=== PATIENT | female | born 1995 | race Caucasian/White ===

== ENCOUNTER 2018-06-03 09:42 | Outpatient (CLI) | payer OTHER ==
--- NOTE | 2018-06-03 12:23 | DEXA Report ---
Procedure Date: 06/03/2018 Accession Number: [id number] / [id number] Procedure: DEX - Dexa Spine and/or Hip CPT Code: FULL RESULT: EXAM: Dexa Spine and/or Hip DATE: 06/03/2018 10:30 AM CLINICAL HISTORY: OSTEOPOROSIS, DRUG-INDUCED TECHNIQUE: Dual energy x-ray absorptiometry (DXA) was performed on a SHADO System. Regions measured are the AP Spine, femoral neck, and if needed forearm. COMPARISON: None. In accordance with the International Society for Clinical Densitometry (ISCD) guidelines, data from previous exams may be reanalyzed using current recommendations and techniques. This is done to allow a more accurate basis for comparison with the current study. FINDINGS: The data for the lumbar spine is as follows: BMD (g/cm/cm) T-SCORE Z-SCORE REGION L1 0.779 -2.9 -2.3 L2 0.933 -2.2 -1.6 L3 0.936 -2.2 -1.5 L4 0.895 -2.5 -1.9 TOTAL 0.889 -2.4 -1.8 NOTE: All evaluable vertebrae are used for classification The data for the hip is as follows: BMD (g/cm/cm) T-SCORE Z-SCORE REGION Neck 0.835 -1.5 -1.1 TOTAL 0.748 -2.1 -1.6 NOTE: The femoral neck or total proximal femur, whichever is lowest, is used for classification. IMPRESSION: THE WHO CLASSIFICATION BASED ON THE INTERNATIONAL REFERENCE STANDARD IS OSTEOPENIA. THE FRACTURE RISK IS INCREASED. RECOMMENDATION: Patients with diagnosis of osteoporosis or osteopenia should have regular bone mineral density assessment. For those eligible for Medicare, routine testing is allowed once every 2 years. Testing frequency can be increased for patients who have rapidly progressing disease or for those who are receiving medical therapy to restore bone mass. COMMENT: World Health Organization (WHO) definitions for osteoporosis and osteopenia: NORMAL BMD: T-score at -1.0 or higher, fracture risk is low OSTEOPENIA BMD: T-score between -1.0 and -2.5, fracture risk is increased. OSTEOPOROSIS BMD: T-score at -2.5 or lower, fracture risk is high. National Osteoporosis Foundation recommends: 1. Obtain adequate dietary calcium (at least 1200 mg per day) and vitamin D (400-800 international units per day). 2. Participate, as appropriate, in regular weightbearing and muscle-strengthening exercise. 3. Avoid tobacco use and reduce alcohol and caffeine intake. 4. For more detailed information see the website at www.NOF.org.
== END 2018-06-03 09:43 | disposition home or self-care (01) ==
LOC: DI 09:42
PROVIDERS: ATTEND Physician Assistant
DX: M85.89 Other specified disorders of bone density and structure, multiple sites (principal)
CPT/HCPCS: 77080

== ENCOUNTER 2020-02-26 07:52 | Outpatient (CLI) | payer OTHER ==
--- NOTE | 2020-02-26 08:59 | Ultrasound Report ---
Reason: POSITIVE TEST Procedure Date: 02/26/2020 Accession Number: [id number] / [id number] Procedure: US - OB First Trimester CPT Code: Final Report FULL RESULT: EXAM: FIRST TRIMESTER OBSTETRIC ULTRASOUND (Less than 11 weeks) EXAM DATE: 02/26/2020 08:44 AM. CLINICAL HISTORY: POSITIVE TEST. LMP: 12/19/2019. COMPARISONS: None. TECHNIQUE: Transabdominal and transvaginal ultrasound examination with static image documentation. CLINICAL DATES: EGA 9 weeks 6 days with ARIADNA 09/24/2020 based on LMP. ASSESSMENT: Gestational Sac: Single intrauterine. Normal shape. Mean gestational sac diameter: 14.4 mm = 6 weeks 2 days (ARIADNA 10/19/2020). Embryo: CRL (crown-rump length) 2.2 mm = 5 weeks 5 days. ARIADNA 10/23/2020). Cardiac activity: Not seen. Yolk sac: 3.2 mm. Amniotic fluid: Not accurately assessed at this gestational age. Early placenta: Not visible at this gestational age. Other: No perigestational fluid collection demonstrated. MATERNAL STRUCTURES: Uterus: Anteverted. Unremarkable. Cervix: Closed. Right Ovary/Adnexa: The ovary measures 2.6 x 2.3 x 1.9 cm, volume 5.9 cc. Probable 2.2 cm corpus luteum. Left Ovary/Adnexa: The ovary measures 2.4 x 1.6 x 1.4 cm, volume 2.8 cc. Unremarkable. Free Fluid: None. Other: None. IMPRESSION: 1. Intrauterine measuring 5 weeks 5 days (ARIADNA 10/23/2020) by CRL, discordant with clinical dates (EGA 9 weeks 6 days, ARIADNA 09/24/2020 by LMP). 2. No embryonic heart motion is seen at this time which may be due to early gestational age however ultimately of uncertain viability. Recommend follow-up with serial serum beta-hCG and follow-up ultrasound in 7-10 days. 3. No perigestational fluid collection. Cervix is closed. RADIA
== END 2020-02-26 07:53 | disposition home or self-care (01) ==
LOC: DI 07:52
PROVIDERS: ATTEND Advanced Practice Midwife
DX: Z32.01 Encounter for pregnancy test, result positive (principal)
CPT/HCPCS: 76801; 76817

== ENCOUNTER 2020-03-01 08:00 | Outpatient (CLI) | payer OTHER | END 2020-03-01 23:59 | disposition home or self-care (01) | LOC: LAB.WCP 08:00 | PROVIDERS: ATTEND Advanced Practice Midwife | DX: Z34.90 Encounter for supervision of normal pregnancy, unspecified, unspecified trimester (principal) | CPT/HCPCS: 36415; 84702 ==

== ENCOUNTER 2020-03-04 13:50 | Outpatient (CLI) | payer OTHER ==
[2020-03-04 14:42] LABS: MUDS CUTOFF CONCENTRATIONS CUTOFF CONC BELOW:
[2020-03-04 16:32] LABS: BILIRUBIN,URINE NEGATIVE (NEGATIVE); GLUCOSE, URINE (UA) NEGATIVE (NEGATIVE); KETONES,URINE (UA) NEGATIVE (NEGATIVE); LEUKOCYTE ESTERASE, URINE NEGATIVE (NEGATIVE); NITRITE,URINE NEGATIVE (NEGATIVE); OCCULT BLOOD,URINE NEGATIVE (NEGATIVE); PROTEIN,URINE NEGATIVE (NEGATIVE); UROBILINOGEN,URINE 0.2 (NORMAL) E.U./dL (NORMAL)
[2020-03-04 16:32] LABS: BASOPHILS % (AUTO) 0.4 %; EOSINOPHILS # (AUTO) 0.1 10^3/uL (0.0-0.7); HGB - HEMOGLOBIN 12.4 g/dL (12.0-16.0); LYMPHOCYTES # (AUTO) 1.8 10^3/uL (1.5-3.5); MEAN CORPUSCULAR HGB CONC 33.2 g/dL (32.0-36.0); MEAN CORPUSCULAR VOLUME 87.4 fL (81.0-99.0); MEAN PLATELET VOLUME 10.5 fL (7.9-10.8); MONOCYTES # (AUTO) 0.6 10^3/uL (0.0-1.0); MONOCYTES % (AUTO) 5.8 %; NEUTROPHILS # (AUTO) 8.1 10^3/uL (1.5-6.6); NEUTROPHILS % (AUTO) 75.3 %; PLT - PLATELET COUNT 265 10^3/uL (130-450); RED BLOOD COUNT 4.28 10^6/uL (4.20-5.40); WHITE BLOOD COUNT 10.7 x10^3/uL (4.8-10.8)
[2020-03-04 16:35] LABS: CLARITY,URINE CLEAR (CLEAR)
[2020-03-04 16:48] LABS: COCAINE SCREEN URINE NEGATIVE (NEGATIVE)
[2020-03-04 16:49] LABS: AMPHETAMINE SCREEN,URINE NEGATIVE (NEGATIVE); BENZODIAZEPINES SCREEN, URINE NEGATIVE (NEGATIVE); METHADONE SCREEN, URINE NEGATIVE (NEGATIVE); METHAMPHETAMINES SCREEN, URINE NEGATIVE (NEGATIVE); OPIATE SCREEN, URINE NEGATIVE (NEGATIVE); OXYCODONE SCREEN, URINE NEGATIVE (NEGATIVE); PROPOXYPHENE SCREEN, URINE NEGATIVE (NEGATIVE); TRICYCLIC ANTIDEPRESSANT,URINE NEGATIVE (NEGATIVE)
[2020-03-04 16:54] LABS: BACTERIA,URINE None Seen /HPF (None Seen); RBC,URINE 0-5 /HPF (0-5); SQUAMOUS EPITHELIAL CELL,UR RARE Squamous (<= Few)
[2020-03-05 11:09] LABS: HIV AG/AB 4TH GEN NON-REACTIVE (NON-REACTIVE)
[2020-03-05 13:35] LABS: HEPATITIS B SURFACE ANTIGEN NON-REACTIVE (NON-REACTIVE); HEPATITIS C ANTIBODY NON-REACTIVE (NON-REACTIVE)
== END 2020-03-04 23:59 | disposition home or self-care (01) ==
LOC: LAB.WCP 13:50
PROVIDERS: ATTEND Advanced Practice Midwife
DX: Z34.80 Encounter for supervision of other normal pregnancy, unspecified trimester (principal)
CPT/HCPCS: 36415; 80306; 81001; 81599; 84702; 85025; 86762; 86803; 86850; 86900; 86901; 87086; 87340; 87389

== ENCOUNTER 2020-03-04 16:31 | Outpatient (CLI) | payer OTHER ==
--- NOTE | 2020-03-04 18:37 | Ultrasound Report ---
Reason: F/U 1ST TRI US, SUPERVISION OF NORMAL PREG. Procedure Date: 03/04/2020 Accession Number: [id number] / [id number] Procedure: US - OB First Trimester CPT Code: Final Report FULL RESULT: EXAM: FIRST TRIMESTER OBSTETRIC ULTRASOUND (Less than 11 weeks) EXAM DATE: 03/04/2020 05:46 PM. CLINICAL HISTORY: F/U 1ST TRI US, SUPERVISION OF NORMAL PREG. LMP: 12/19/2019. COMPARISONS: OB FIRST TRIMESTER 02/26/2020 7:59 AM. TECHNIQUE: Transabdominal and transvaginal ultrasound examination with static image documentation. CLINICAL DATES: EGA 6 weeks 5 days with ARIADNA 10/23/2020 based on prior ultrasound . ASSESSMENT: Gestational Sac: Single intrauterine. Mean gestational sac diameter: 21 mm = 7 weeks 0 days. Embryo: CRL (crown-rump length) 8 mm = 6 weeks 5 days. Cardiac activity: 113 beats per minute. Yolk sac: 4 mm. Amniotic fluid: Not accurately assessed at this gestational age. Early placenta: Not visible at this gestational age. Other: 0.7 x 0.5 cm perigestational fluid collection demonstrated. MATERNAL STRUCTURES: Uterus: Anteverted. Unremarkable. Cervix: Closed. Right Ovary/Adnexa: The ovary measures 2.6 x 2.8 x 2.3 cm, volume 8.8 cc. 2.4 x 2.2 x 2.4 cm corpus luteal cyst. Left Ovary/Adnexa: The ovary measures 2.6 x 1.1 x 2.8 cm, volume 4 cc. Unremarkable. Free Fluid: None. Other: None. IMPRESSION: 1. Single viable intrauterine at EGA 6 weeks 5 days with ARIADNA 10/23/2020 based on crown-rump length, which is concordant with previous ultrasound. Small perigestational fluid collection RADIA
== END 2020-03-04 16:32 | disposition home or self-care (01) ==
LOC: DI 16:31
PROVIDERS: ATTEND Advanced Practice Midwife
DX: Z34.81 Encounter for supervision of other normal pregnancy, first trimester (principal)
CPT/HCPCS: 36415; 76801; 76817; 80306; 81001; 81599; 84702; 85025; 86762; 86803; 86850; 86900; 86901; 87340; 87389

== ENCOUNTER 2020-05-08 08:58 | Outpatient (CLI) | payer OTHER | END 2020-05-08 23:59 | disposition home or self-care (01) | LOC: LAB.WCP 08:58 | PROVIDERS: ATTEND Advanced Practice Midwife | DX: Z34.80 Encounter for supervision of other normal pregnancy, unspecified trimester (principal); Z36.0 Encounter for antenatal screening for chromosomal anomalies | CPT/HCPCS: 36415; 81511; 81599 ==

== ENCOUNTER 2020-05-29 07:00 | Outpatient (CLI) | payer OTHER ==
[2020-05-29 22:24] LABS: TRICHOMONAS VAGINALIS DNA NEGATIVE (NEGATIVE)
== END 2020-05-29 23:59 | disposition home or self-care (01) ==
LOC: LAB.R 07:00
PROVIDERS: ATTEND Advanced Practice Midwife
DX: Z34.80 Encounter for supervision of other normal pregnancy, unspecified trimester (principal)
CPT/HCPCS: 87491; 87591; 87661

== ENCOUNTER 2020-06-05 15:54 | Outpatient (CLI) | payer OTHER ==
--- NOTE | 2020-06-06 16:21 | Ultrasound Report ---
PROCEDURE: OB Detailed Eval INDICATIONS: SUPERVISION, OTHER NORMAL PREG OUTSIDE/PRIOR DATING DATA: Last menstrual period (LMP): 12/19/2019. LMP-based estimated date of delivery (ARIADNA): 09/24/2020. First dating scan (date and location): 02/26/2020. Estimated date of delivery (ARIADNA) from first dating scan: 10/23/2020. TECHNIQUE: Real-time scanning was performed of the fetus, with image documentation and biometric measurements. COMPARISON: OB ultrasound 03/04/2020 FINDINGS: General: A single living intrauterine gestation is present. Presentation: Vertex Placenta: Placental position is posterior, without previa. Amniotic fluid index: 14.5 cm, 54th percentile for gestational age. Largest pocket 4.6 cm heart rate: 147 beats per minute. Maternal cervical canal: 3.3 cm long; normal length is 2.5 cm or more. biometrics: Biparietal diameter: 4.7 cm 20 weeks 1 day Head circumference: 17.7 cm 20 weeks 1 day Abdominal circumference: 14.9 cm 20 weeks 1 day Femur length: 3.0 cm 19 weeks 3 days Estimated gestational age from initial scan: 20 weeks 0 days Composite gestational age from present scan: 19 weeks 5 days Estimated weight and percentile: 317g, 37th percentile Measurement variability in biometric dating: +/- 10 days from 12-20 weeks gestation, +/- 2 weeks from 20-30 weeks gestation, +/- 3 weeks at 30 weeks gestation or later. Anatomic survey: Neuro: Ventricles are normal at less than 10 mm. Cisterna magna is normal at 3-11 mm. Cerebellum i s normal in size and morphology. Nuchal skin fold: Normal at less than 6 mm between 14 and 20 weeks gestational age. Face: Nose and lips, facial profile are normal. Spine: No evidence for spina bifida. Heart: 4-chambered heart is not well seen. Diaphragm: Diaphragm is intact. Stomach: Left-sided stomach is present. Kidneys: No hydronephrosis. Normal is less than 5 mm in 2nd trimester, less than 7 mm in 3rd trimester. Cord: 3 vessel cord has orthotopic insertion. Bladder: Normal in size. Extremities: All 4 extremities are visualized. IMPRESSION: 1. Single live anterior with ultrasound gestational age today of 19 weeks 5 days correspond ing to ARIADNA of 10/23/2020, unchanged. 2. 4 chamber heart is suboptimally evaluated. Follow-up imaging is recommended. Reviewed by: Genesis Bruno MD on 06/06/2020 4:20 PM PDT Approved by: Genesis Bruno MD on 06/06/2020 4:20 PM PDT Station ID: [id number]
== END 2020-06-05 15:55 | disposition home or self-care (01) ==
LOC: DI 15:54
PROVIDERS: ATTEND Advanced Practice Midwife
DX: Z34.80 Encounter for supervision of other normal pregnancy, unspecified trimester (principal)
CPT/HCPCS: 76811

== ENCOUNTER 2020-07-18 13:46 | Outpatient (CLI) | payer OTHER ==
--- NOTE | 2020-07-18 16:22 | Ultrasound Report ---
PROCEDURE: OB F/U or Repeat INDICATIONS: SUPERVISION NORMAL OUTSIDE/PRIOR DATING DATA: Last menstrual period (LMP): 12/19/2019. LMP-based estimated date of delivery (ARIADNA): 09/24/2020. First dating scan (date and location): 02/26/2020. Estimated date of delivery (ARIADNA) from first dating scan: 10/23/2020. TECHNIQUE: Real-time scanning was performed of the fetus, with image documentation and biometric measurements. Endovaginal scanning: Not performed COMPARISON: 06/05/2020 FINDINGS: General: A single living intrauterine gestation is present. Presentation: Transverse oblique Placenta: Placental position is posterior, without previa. Amniotic fluid index: 14.0 cm, normal for gestational age. heart rate: 157 beats per minute. Maternal cervical canal: 4.7 cm long; normal length is 2.5 cm or more. Other: Adequate view of the normal 4 chambered heart is obtained. IMPRESSION: 1. Single living intrauterine . 2. Normal-appearing 4 chambered heart is documented. Reviewed by: Jessica Alonso MD on 07/18/2020 4:21 PM PDT Approved by: Jessica Alonso MD on 07/18/2020 4:21 PM PDT Station ID: [id number]
== END 2020-07-18 13:47 | disposition home or self-care (01) ==
LOC: DI 13:46
PROVIDERS: ATTEND Advanced Practice Midwife
DX: Z34.80 Encounter for supervision of other normal pregnancy, unspecified trimester (principal)
CPT/HCPCS: 76816

== ENCOUNTER 2020-07-22 07:48 | Outpatient (CLI) | payer OTHER ==
[2020-07-22 11:43] LABS: HGB - HEMOGLOBIN 11.4 g/dL (12.0-16.0); MEAN CORPUSCULAR HEMOGLOBIN 29.2 pg (27.0-31.0); MEAN CORPUSCULAR HGB CONC 32.2 g/dL (32.0-36.0); MEAN CORPUSCULAR VOLUME 90.5 fL (81.0-99.0); MEAN PLATELET VOLUME 10.6 fL (7.9-10.8); RED BLOOD COUNT 3.91 10^6/uL (4.20-5.40); RED CELL DISTRIBUTION WIDTH 13.1 % (12.0-15.0); WHITE BLOOD COUNT 9.5 x10^3/uL (4.8-10.8)
== END 2020-07-22 23:59 ==
LOC: LAB.WCP 07:48
PROVIDERS: ATTEND Advanced Practice Midwife
DX: Z34.80 Encounter for supervision of other normal pregnancy, unspecified trimester (principal)
CPT/HCPCS: 36415; 82950; 85027

== ENCOUNTER 2020-09-25 08:00 | Outpatient (CLI) | payer OTHER | END 2020-09-25 08:01 | disposition home or self-care (01) | LOC: LAB.R 08:00 | PROVIDERS: ATTEND Nurse Practitioner Obstetrics & Gynecology | DX: Z36.85 Encounter for antenatal screening for Streptococcus B (principal) | CPT/HCPCS: 87797 ==

== ENCOUNTER 2020-10-15 08:17 | Outpatient (CLI) | payer OTHER ==
--- NOTE | 2020-10-15 15:52 | Ultrasound Report ---
PROCEDURE: OB Follow Up or Repeat INDICATIONS: UTERINE SIZE-DATE DISCREPANCY OUTSIDE/PRIOR DATING DATA: Last menstrual period (LMP): 12/19/2019. LMP-based estimated date of delivery (ARIADNA): 09/24/2020. First dating scan (date and location): 02/26/2020. Estimated date of delivery (ARIADNA) from first dating scan: 12/23/2019. TECHNIQUE: Real-time scanning was performed of the fetus, with image documentation and biometric measurements. COMPARISON: OB ultrasound 07/18/2020, , 03/04/2020 FINDINGS: General: A single living intrauterine gestation is present. Presentation: Vertex Placenta: Placental position is posterior, without previa. Amniotic fluid index: 13.7 cm, within normal limits for gestational age. Largest pocket 5.7 cm heart rate: 159 beats per minute. Maternal cervical canal: 3.2 cm long; normal length is 2.5 cm or more. biometrics: Biparietal diameter: 9.0 cm 36 weeks 3 days Head circumference: 33.7 cm 38 weeks 4 days Abdominal circumference: 32.3 cm 36 weeks 1 day Femur length: 7.2 cm 36 weeks 6 days Estimated gestational age from initial scan: 38 weeks 6 days Composite gestational age from present scan: 37 weeks 0 days Estimated weight and percentile: 2994 g Measurement variability in biometric dating: +/- 10 days from 12-20 weeks gestation, +/- 2 weeks from 20-30 weeks gestation, +/- 3 weeks at 30 weeks gestation or more. Other: Not applicable. IMPRESSION: 1. Single live intrauterine with ultrasound gestational age today of 37 weeks 0 days compar ed to 38 weeks 6 days from initial ultrasound. Ultrasound ARIADNA is unchanged at 12/23/2019. Reviewed by: Genesis Bruno MD on 10/15/2020 3:51 PM PST Approved by: Genesis Bruno MD on 10/15/2020 3:51 PM PST Station ID: [id number]
== END 2020-10-15 08:18 | disposition home or self-care (01) ==
LOC: DI.N 08:17
PROVIDERS: ATTEND Nurse Practitioner Obstetrics & Gynecology
DX: O26.843 Uterine size-date discrepancy, third trimester (principal)
CPT/HCPCS: 76816

== ENCOUNTER 2020-10-28 14:00 | Outpatient (CLI) | payer OTHER | END 2020-10-28 14:01 | disposition home or self-care (01) | LOC: LAB 14:00 | PROVIDERS: ATTEND Nurse Practitioner Obstetrics & Gynecology | DX: Z34.80 Encounter for supervision of other normal pregnancy, unspecified trimester (principal); Z20.828 Contact with and (suspected) exposure to other viral communicable diseases ==

== ENCOUNTER 2020-10-30 09:11 | Outpatient (CLI) | payer OTHER ==
[2020-10-30 09:26] VITALS: BP 127/88
--- NOTE | 2020-10-30 10:04 | PROCEDURE REPORT ---
- HPI Diagnosis/Indication for NST: Post-dates gestation Vital Signs Temperature 36.9 C 10/30/20 09:24 Heart Rate 104 H 10/30/20 09:24 Respiratory Rate 18 10/30/20 09:24 Blood Pressure 127/88 H 10/30/20 09:24 O2 Saturation 100 10/30/20 09:24 Temperature 36.9 C 10/30/20 09:24 Heart Rate 104 H 10/30/20 09:24 Respiratory Rate 18 10/30/20 09:24 Blood Pressure 127/88 H 10/30/20 09:24 O2 Saturation 100 10/30/20 09:24 - NST Procedure NST reactive. FHR baseline 140s, moderate variability, + accels, no decels - Results and Plan Plan: Malini is a 25yo @ 41.0wks gestation by 6.5 week ultrasound who presents for scheduled NST secondary to postdates . She was seen for routine visit at [facility] immediately prior to her arrival today. She denies vaginal bleeding, leakage of fluid or contractions. She reports +FM. She denies questions or concerns today. NST performed 10/30/2020. NST read 10/30/2020 NST reactive. FHR baseline 140s, moderate variability, + accels, no decels. Plan: Pt released home with precautions. Schedule to return 11/01/2020 at 0730 for scheduled IOL secondary to postdates . Advised pt to present at that time or sooner PRN. Pt verbalized understanding and agrees to above plan. She denies further questions or concerns at this time. FINAL DIAGNOSIS: Post-dates (41.0wks gestation)
== END 2020-10-30 10:00 | disposition home or self-care (01) ==
LOC: WFO 09:11 → FBP 09:14 → WFO 10:00
PROVIDERS: ATTEND Nurse Practitioner Obstetrics & Gynecology
DX: O48.0 Post-term pregnancy (principal); Z3A.41 41 weeks gestation of pregnancy
CPT/HCPCS: 59025

== ENCOUNTER 2020-10-31 00:56 | Inpatient (IN) | payer OTHER ==
[2020-10-31] MEDS ORDERED: SODIUM CHLORIDE FLUSH 0.9% 10 ML SYRINGE IVP PRN (01:19)
[2020-10-31 01:39] LABS: RUPTURE OF MEMBRANES PLUS POSITIVE (NEGATIVE)
[2020-10-31] MEDS ORDERED: fentaNYL 100 MCG/2 ML VIAL IVP PRN (01:47)
[2020-10-31] MEDS ORDERED: OXYTOCIN/SODIUM CHLORIDE 500 ML IV PRN ×2 (01:47)
[2020-10-31] MEDS ORDERED: METHYLERGONOVINE 0.2 MG/ML VIAL IM PRN (01:47)
[2020-10-31] MEDS ORDERED: LIDOCAINE-MPF 1% 30 ML VIAL ID PRN (01:47)
[2020-10-31] MEDS ORDERED: OXYTOCIN 10 UNIT/ML VIAL IM PRN (01:47)
[2020-10-31] MEDS ORDERED: CARBOPROST TROMETHAMINE 250 MCG/ML AMP IM PRN (01:47)
[2020-10-31] MEDS ORDERED: miSOPROStoL 200 MCG TABLET BC PRN (01:47)
[2020-10-31] MEDS ORDERED: TRANEXAMIC ACID 1,000 MG in SODIUM CHLORIDE 0.9% 100ML 100 ML IV PRN (01:47)
[2020-10-31 02:15] LABS: BASOPHILS % (AUTO) 0.2 %; EOSINOPHILS # (AUTO) 0.3 10^3/uL (0.0-0.7); EOSINOPHILS % (AUTO) 2.4 %; HGB - HEMOGLOBIN 12.5 g/dL (12.0-16.0); LYMPHOCYTES # (AUTO) 2.8 10^3/uL (1.5-3.5); LYMPHOCYTES % (AUTO) 22.9 %; MEAN CORPUSCULAR HEMOGLOBIN 29.8 pg (27.0-31.0); MEAN CORPUSCULAR HGB CONC 33.3 g/dL (32.0-36.0); MEAN CORPUSCULAR VOLUME 89.3 fL (81.0-99.0); MEAN PLATELET VOLUME 11.2 fL (7.9-10.8); MONOCYTES # (AUTO) 0.7 10^3/uL (0.0-1.0); NEUTROPHILS # (AUTO) 8.2 10^3/uL (1.5-6.6); PLT - PLATELET COUNT 239 10^3/uL (130-450); RED CELL DISTRIBUTION WIDTH 12.8 % (12.0-15.0); WHITE BLOOD COUNT 12.1 x10^3/uL (4.8-10.8)
--- NOTE | 2020-10-31 04:33 | HISTORY & PHYSICAL EXAMINATION ---
Admit History - Visit Reason Visit Reason: Membranes rupture - : 1 Parity: 0 Premature: 0 Ectopic: 0 : 0 Care: positive: [facility] Risk/History: positive: None Complications This : positive: None Smoking Status: Never smoker - Mother's Labs Mother's Blood Type: positive: B Mother's RH: positive: Positive GBS: positive: Group B Step Negative Rubella Status: positive: Immune Meds/Allgy - Allergies Allergies/Adverse Reactions: Allergies Allergy/AdvReac Type Severity Reaction Status Date / Time amoxicillin Allergy Hives Verified 10/31/20 01:10 Review of Systems - Constitutional Constitutional: denies: Fatigue, Fever, Chills - Eyes Eyes: denies: Blurred vision, Spots in vision, Dipolpia - Cardiovascular Cariovascular: denies: Irregular heart rate, Chest pain, Edema - Respiratory Respiratory: denies: Cough, SOB at rest - Gastrointestinal Gastrointestinal: denies: Abdominal pain, Constipation, Diarrhea, Change in bowel habits - Integumentary Integumentary: denies: Rash, Pruritis - Neurological Neurological: denies: Headache, Dizziness Physical - Abdominal Exam Vital Signs: Temp Pulse Resp BP Pulse Ox 36.8 C 103 H 16 118/81 H 99 10/31/20 01:53 10/31/20 01:08 10/31/20 01:08 10/31/20 02:17 10/31/20 01:08 Contraction Frequency (min/apart): 2-4 Contraction Intensity: positive: Moderate Uterine Resting Tone: positive: Soft - Monitoring Heart Rate Baseline: 140 Strip Review: positive: Category I - Presentation Presentation: positive: Vertex - Vaginal Exam Membranes: positive: Membranes ruptured Dilation (in cm): 2 Effacement (%): 90 Station: positive: -1 Cervical Position: positive: Posterior - Speculum Exam Speculum Exam Performed: positive: No Findings: positive: Gross leak, Other Plan for Labor - Plan For Labor I expect patient to be DC'd or transferred within 96 hours.: Yes Plan for Labor: HPI: Malini is a 25yo @ 41.1wks gestation by 6.5wk U/S which was disconcordant with LMP, who presents to [facility] with complaints of vaginal leakage of clear fluid which began at apprximately 2300 on 10/30/2020. She reports intermittent abdominal tightening with cramping but denies significant dis comfort. She reports +FM. Upon arrival SVE 2-3/90/-1, posterior and vertex with grossly ruptured membranes. A ROM+ was collected and was positive. She was admitted to [facility] for expectant management. She has been a patient of [facility] through the duration of her which has remained uncomplicated. Her past medical history is significant for Rheumatoid arthritis which has been well controlled without medications for the duration of her . She was started on 81mg aspirin daily in the beginning of her however, she stopped taking this without provider direction at 28wks gestation. She is accompanied today by her José. Dating criteria: LMP 12/19/2019 Initial ultrasound @ 6.5wks is not consistent with LMP dating (differs by 4 weeks) and dates Serial Exams - agree Medications: PNV; 81mg aspirin 1 tab PO daily Allergies: Amoxicillin (critical) PMHx: Seronegative Rheumatoid arthritis; Osteoporosis; +autoimmune skin changes; Hx pleuritis - admitted as a child Surgical Hx: lymph node biopsy Familiy Hx: HTN- mother; Alcoholism - mother; psychiatric care - mother; Lung/respiratory disease - MGM; LA<65 - mother; Rheumatoid arthritis - MGF. Social Hx: Never smoker. No ETOH of IVDA. Partner José. course: Initial U/S: 6.5 for ARIADNA of 10/23/2020, discordant with LMP by 4wks B pos/Rubella immune Gentic testing: quad- neg FAS: Posterior placenta. OBDULIA wnl. EFW 37%. 3VC. Heart suboptimally evaluated, follow up indicated f/u US for cardiac views: SIUP. Heart wnl. f/u US for growth 10/15/2020: 2994 which is approx 19.7% Glucola: 110 (CBC 35.4%/11.4/257) TDAP : 07/24/2020 Flu: 08/28/2020 GBS collected @ 36.0wks- neg HSV: denies Breast pump Rx : 08/28/2020 MOD: . : José. Desires NCB-NOX. Baby GIRL: Janey Karen pp contraception: POPs PAP: never had. Desires Physical Exam: Normocephalic, atraumatic Heart RRR w/o M/G/R Lungs CTAB Abdomen gravid, soft, nontender EFW 3400g FHR baseline 140s, moderate variability, + accels, no decels Contractions palpate moderate every 2-4 minutes with soft resting tone SVE 2/90/-1, posterior. Vertex. Grossly ruptured membranes with +ROM plus. Bilateral LE's no edema. Mood is good. Assessment: 25yo @ 41.1wks gestation by 6.5wk U/S not consistent with LMP dating SROM Early labor GBS negative FHR Category I Plan: Admit for expectant management Intermittent monitoring Encouraged ambulation and position changes Nitrous oxide PRN. Jacuzzi PRN. Epidural per maternal request. Anticipate . Reviewed plan of care with pt, at the bedside, and labor RN who are all in agreement with above plan and deny further questions or concerns at this time.
[2020-10-31] MEDS: LACTATED RINGERS 1,000 ML IV SCH (05:00)
--- NOTE | 2020-10-31 05:12 | PROVIDER PROGRESS NOTE ---
Labor Progress Note - Monitoring Monitor Mode: positive: External ultrasound Heart Rate Baseline: 140 Heart Rate Variability: positive: Moderate (6-25 bmp) Accelerations: positive: Present, 15x15 Decelerations: positive: None Strip Review: positive: Category I - Vaginal Exam Dilation (in cm): 2 Effacement (%): 90 Station: -1 Cervical Position: Midposition - Labor Progress Note Labor Progress Note/Additional Text: S: Patient feeling slight change in intensity of contractions but continues to rate them 5/10 on a pain scale. She requests SVE which is unchanged from admission as well as unchanged from her routine visit yesterday. After counseling regarding options for management patient elects to proceed with labor augmentation. Overall she reports feeling well. She desires an unmedicated delivery however is not in opposition to an epidural and is open if needed. Her mood is a good. Her José is supportive at the bedside. O: SVE unchanged at 2/90/-1, midposition, soft. Vertex. SROM x 6 hours FHR baseline 140s, moderate variability, + accels, no decels Contractions palpate mild-moderate every 2-5 minutes with soft resting tone Tang score - favorable A: 25yo @ 41.1wks gestation by 6.5wk U/S SROM - afebrile Early labor FHR Category I GBS negative P: Initiation pitocin via IV for labor augmentation Continuous monitoring Encouraged ambulation and position changes. Jacuzzi PRN. Nitrous oxide PRN. Epidural per maternal request. Anticipate .
[2020-10-31] MEDS: OXYTOCIN/SODIUM CHLORIDE 500 ML IV SCH ×2 (05:34→17:20)
--- NOTE | 2020-10-31 08:48 | PROVIDER PROGRESS NOTE ---
Labor Progress Note - Uterine Monitoring Uterine Monitoring Mode: positive: External toco Contraction Frequency (min/apart): 2-4 Contraction Intensity: positive: Moderate Uterine Resting Tone: positive: Soft - Monitoring Monitor Mode: positive: External ultrasound Heart Rate Baseline: 145 Heart Rate Variability: positive: Moderate (6-25 bmp) Accelerations: positive: Present, 15x15 Decelerations: positive: None Strip Review: positive: Category I - Vaginal Exam Dilation (in cm): 3 Effacement (%): 95 Station: -1 Cervical Position: Midposition - Labor Progress Note Labor Progress Note/Additional Text: S: Breathing through contractions and coping well. She is slightly discouraged w ith little progress in 4 hours however feels reassured following our discussion. She reports continuing to leak clear fluid from her vagina and has noticed a small amount of bloody show when she goes to the bathroom. Her partner is supportive at the bedside. O: FHR baseline 145, moderate variability, + accels, no decels Contractions palpate moderate every 2-4 minutes with soft resting tone SVE 3/95/-1, midposition, soft. Vertex. Forebag of amniotic fluid released and was noted to be a small amount of clear fluid. Pitocin a 3mU/mL A: 25yo @ 41.1wks gestation by 6.5wk U/S Early labor SROM x 9.5hrs FHR Category I GBS negative P: Continuous monitoring Continue pitocin augmentation of labor with titration per protocol Repeat SVE in 4 hours or sooner PRN. Nitrous oxide PRN. Jacuzzi PRN. Anticipate . Reviewed plan of care with pt, partner at the bedside and labor RN who are in agreement with above plan and deny further questions or concerns at this time.
[2020-10-31] MEDS ORDERED: SODIUM CHLORIDE FLUSH 0.9% 10 ML SYRINGE IVP SCH (09:00)
[2020-10-31] MEDS ORDERED: ROPIVACAINE 0.2% 200 MG/100 ML BAG EP ONE (13:08)
[2020-10-31] MEDS ORDERED: ROPIVACAINE 0.2% PF 20ML VIAL ONE (13:08)
[2020-10-31] MEDS ORDERED: fentaNYL 100 MCG/2 ML VIAL ONE (13:09)
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
[2020-10-31] MEDS ORDERED: METOCLOPRAMIDE 10 MG/2 ML VIAL IVP PRN (13:43)
[2020-10-31] MEDS ORDERED: ePHEDrine 50 MG/ML VIAL IVP PRN (13:43)
[2020-10-31] MEDS ORDERED: ONDANSETRON 4 MG/2 ML VIAL IVP PRN (13:43)
[2020-10-31] MEDS ORDERED: NALBUPHINE 10 MG/ML AMP IVP PRN (13:43)
[2020-10-31] MEDS ORDERED: NALOXONE 0.4 MG/ML VIAL IVP PRN (13:43)
[2020-10-31] MEDS ORDERED: diphenhydrAMINE INJ 50 MG/ML VIAL IVP PRN (13:43)
--- NOTE | 2020-10-31 14:22 | PROVIDER PROGRESS NOTE ---
Labor Progress Note - Uterine Monitoring Uterine Monitoring Mode: positive: External toco Contraction Frequency (min/apart): 2-3 Contraction Intensity: positive: Strong Uterine Resting Tone: positive: Soft - Monitoring Monitor Mode: positive: External ultrasound Heart Rate Baseline: 130 Heart Rate Variability: positive: Moderate (6-25 bmp) Accelerations: positive: Present, 15x15 Decelerations: positive: None Strip Review: positive: Category I - Vaginal Exam Dilation (in cm): 7 Effacement (%): 95 Station: 0 Cervical Position: Anterior - Labor Progress Note Labor Progress Note/Additional Text: S: Feeling comfortable with epidural. She received 50mcg of IVP Fentanyl at 1240. Shortly after her partner noted slight left sided facial swelling and eye redness. Pt denies itching, SOB, difficulty breathing or swallowing. She states she feels fine and cannot tell her face is swollen as it does not feel swollen to her. She states she was laying on her left side for quite some time with her head resting on her arms so she is feeling that may be the cause. She denies known allergies to fentanyl or other narcotics and she has never used fentanyl in the past to her knowledge. She denies RICHARDS, visual disturbances, dizziness or lightheadedness. She is pleased with her progress in labor. She is hoping to be able to take a nap now that she is comfortable. Her is supportive at the bedside. O: FHR baseline 130, moderate variability, + accels, no decels Contractions palpate strong every 2-3 minutes with soft resting tone. SVE 7/95/0, anterior, soft. BP 104/66, HR 100, T 36.5 Pitocin at 6 mU/mL A: 25yo @ 40.0wks gestation by 6.5wk U/S Active labor Pitocin augmentation secondary to SROM x 15.5hrs FHR Category I GBS negative P: Continuous monitoring. Continue pitocin augmentation of labor Rotate in bed on peanut ball. Anticipate .
[2020-10-31] MEDS ORDERED: WITCH HAZEL/GLYCERIN 1 PAD TOP PRN (17:58)
[2020-10-31] MEDS ORDERED: HYDROCORTISONE 1% CREAM 28 GM TUBE PR PRN (17:58)
--- NOTE | 2020-10-31 18:21 | DELIVERY NOTE ---
Delivery Note - Labor Labor: positive: Augmented by oxytocin - Delivery Method Delivery Method: positive: Spontaneous vaginal delivery - Presentation Presentation: positive: Vertex, TIFFANY - left occiput anterior - Nuchal Cord Nuchal Cord: positive: None - Amniotic Fluid Description Amniotic Fluid Description: positive: Clear - Episiotomy Type Episiotomy Type: positive: None - Laceration Laceration: positive: 2nd degree, Perineal, Vaginal - Suture Suture Type: positive: Vicryl Suture Size: positive: 2-0, 3-0 - Delivery Outcome Delivery Outcome: positive: Livebirth - [place] : positive: Placed in direct skin contact with mother, Stimulated, Warmed, [place] used sex: positive: Female - Cord Cord: positive: 3 vessels - Placenta Placenta: positive: Intact, Spontaneous - Estimated Blood Loss Estimated Blood Loss (in cc): 400 - Post Delivery Events Post Delivery Events: positive: No post delivery events - Delivery Comments (Free Text/Narrative) Delivery Comments (Free Text/Narrative): Labor: This 25yo @ 41.1wks gestation presented to [facility] on 10/30/2020 with SROM which occurred at 2300 and was noted to be a moderate amount of clear fluid. Cervix was 2/90/-1 and vertex. FHR pattern demonstrated Category I pattern throughout labor. Pitocin initiated for augmentation and titrated per protocol for a maximum infusion rate of 6mU/mL. Normal labor course. Epidural placed per maternal request. Patient progressed to c/c/0 at 1553 with onset of spontaneous pushing at 1606. : Normal of viable female infant on 10/31/2020 @ 1642. No nuchal cord. The was placed on maternal abdomen, stimulated, dried, and placed skin to skin. 's were 9/9 at 1 and 5 min respectively. Pitocin administered via IV for hemostasis. The umbilical cord was allowed to stop pulsating at which time it was doubly clamped by CNM and cut by FOB. 3VC. Cord blood was obtained. Fundal massage and gentle cord traction applied for active management of the third stage. Placenta delivered spontaneously and intact @ 1651. EBL 200mL prior to the laceration repair. Fourth stage: Uterine fundus firm and there is no excessive bleeding. The perineum, vagina, and cervix were inspected and found to have 2nd degree bilateral sulcus vaginal lacerations which were repaired using 2-[address]-1 needle. 2nd degree vaginal floor repair completed using 2-[address]- 1 needle. Perineal repair completed using 3-[address]-1 needle. The entire repair was completed in standard fashion and under sterile conditions. Vaginal and rectal examination following the repair were done. Tissues well approximated. initiated. Family bonding well. Both mother and baby are in stable condition.
[2020-10-31] MEDS: ACETAMINOPHEN 500 MG TABLET PO SCH (18:23)
[2020-10-31] MEDS: IBUPROFEN 800 MG TABLET PO SCH (18:23)
[2020-10-31] MEDS: DOCUSATE SODIUM 100 MG CAPSULE PO SCH (21:47)
[2020-11-01] MEDS: IBUPROFEN 800 MG TABLET PO SCH ×4 (01:54→20:38)
[2020-11-01] MEDS: ACETAMINOPHEN 500 MG TABLET PO SCH ×2 (01:58→12:13)
[2020-11-01] MEDS: HYDROcod/ACETAM 5/325 MG TABLET PO PRN ×3 (07:52→20:37)
[2020-11-01] MEDS: DOCUSATE SODIUM 100 MG CAPSULE PO SCH (07:52)
--- NOTE | 2020-11-01 09:50 | PROVIDER PROGRESS NOTE ---
Subjective - Subjective Subjective: S: Bonding well with baby. without difficulty. Pain well controlled with oral medications. Feeling continued discomfort in her perineum but states the ice and witch dexter pads are improving her discomfort. Denies pain when she is laying still. Experience most of the discomfort when she is up and moving around or when she is sitting directly up when nursing. Has been sitting on a pillow which helps. She states her pain is improved after taking the ibuprofen. O: BP 122/80, HR 90, RR 16, T 36.6 Heart RRR w/o M/G/R, lungs CTAB, abdomen gravid, soft, nontender with fundus firm at U-1, perineum intact and repair without edema, light lochia rubra, bilateral LE's trace edema. A: 284o -->P1 PPD#1 s/p TSVD of viable female infant 2nd degree laceration -intact P: Continue routine pp care and medications. Evaluate for discharge home tomorrow. Pt verbalized understanding and agrees to above plan. She denies further questions or concerns at this time. Objective - Vital Signs/Intake & Output Vital Signs: Vital Signs x48h Temp Pulse Resp BP Pulse Ox 11/01/20 07:48 36.6 C 90 16 122/80 100 11/01/20 05:40 36.5 C 78 18 112/66 98 11/01/20 02:00 36.6 C 95 18 122/68 98 Intake & Output: Intake & Output 10/29/20 10/30/20 10/31/20 11/01/20 23:59 23:59 23:59 23:59 Intake Total 161.200 Output Total 2050 Balance -1888.800 - Lab Results Fish Bones: 10/31/20 02:06
[2020-11-02] MEDS: ACETAMINOPHEN 500 MG TABLET PO SCH ×2 (00:53→08:33)
[2020-11-02] MEDS: IBUPROFEN 800 MG TABLET PO SCH ×2 (02:28→08:33)
[2020-11-02 08:13] VITALS: BP 123/85
[2020-11-02] MEDS: DOCUSATE SODIUM 100 MG CAPSULE PO SCH (08:34)
[2020-11-02] MEDS: LACTATED RINGERS 1,000 ML IV SCH (08:35)
[2020-11-02] MEDS: HYDROcod/ACETAM 5/325 MG TABLET PO PRN (10:56)
--- NOTE | 2020-11-02 10:58 | PROVIDER PROGRESS NOTE ---
Subjective - Subjective Subjective: FINAL PROGRESS NOTE: S: Bonding well with baby. without difficulty. Pain well controlled with oral medications. She states the discomfort at her perineum has improved and seems to be fine as long as she is not sitting directly on it. Her bleeding is decreased and is light. They state they are very ready to go home today. supportive at the bedside. O: 123/83, T 36.9, HR 97, RR 16 Heart RRR w/o M/G/R, lungs CTAB, abdomen soft and nontender with fundus firm at U-1, perineum intact, light lochia rubra, bilateral LE's no edema. A: 25yo -->P1 PPD#2 s/p TSVD of viable female 2nd degree perineal laceration - intact P: Reviewed pp self care and warning s/sx and when to present. Advised continuation of ibuprofen and tylenol OTC PRN pain. Advised continuation of PNV while . F/u in 1 week for routine pp visit at [facility] or sooner PRN. Pt verbalized understanding and agrees to above plan. She denies further questions or concerns at this time. Objective - Vital Signs/Intake & Output Vital Signs: Vital Signs x48h Temp Pulse Resp BP Pulse Ox 11/02/20 08:00 36.9 C 97 18 123/85 H 100 11/02/20 04:23 36.6 C 83 16 113/78 100 Intake & Output: Intake & Output 10/30/20 10/31/20 11/01/20 11/02/20 23:59 23:59 23:59 23:59 Intake Total 161.200 250 Output Total 2049 Balance -1888.800 250 - Lab Results Fish Bones: 10/31/20 02:06
--- NOTE | 2020-11-02 11:02 | Discharge Plan ---
Discharge Plan Problem Reviewed?: Yes Disposition: Home, Self Care Condition: Good Diet: Regular Activity Restrictions: No Restrictions Shower Restrictions: No Driving Restrictions: No Weight Bearing: Full Weight No Smoking: If you smoke, Please STOP! Call for help. Follow-up with: Opal Quintana CNM, ARNP [Provider Admit Priv/Credential] -
--- NOTE | 2020-11-02 11:19 | Labor Flowsheet ---
Labor Flowsheet Datetime Report Generated by CPN: 11/02/2020 11:18 Datetime: 11/02/2020 08:12 VITAL SIGNS NBP Sys/Kathie/Mean (mmHg): 123 : 85 : 94 Pulse: 108 Datetime: 10/31/2020 18:45 PAIN Pain Scale: 0 Datetime: 10/31/2020 18:24 Temperature (C): 36.9 Datetime: 10/31/2020 17:55 Communication Comments: count correct, repair finished Datetime: 10/31/2020 17:39 SpO2 (%): 100 Datetime: 10/31/2020 17:29 Patient Care Comments: repair Datetime: 10/31/2020 16:47 Medication Comments: Pit at 999 Datetime: 10/31/2020 16:45 Stage of : Recovery Datetime: 10/31/2020 16:41 UTERINE ACTIVITY Monitor Mode: External Frequency (min): 2-4 Quality: Mild Duration (sec): 50-60 Pattern: Normal: <= 5 Contractions in 10 Minutes Resting Tone (Palpate): Relaxed ASSESSMENT A Monitor Mode: External US FHR Baseline Changes: No Baseline Change Variability: Moderate 6-25 bpm Accelerations: 15X15 Decelerations: Variable Actions for Decelerations: Other Category: Category II Comments: responded with head stimulation Datetime: 10/31/2020 16:19 LaborFlag: Labor Datetime: 10/31/2020 16:00 FHR Baseline Rate : 140 Datetime: 10/31/2020 15:53 VAGINAL EXAM Dilatation (cm): 10.0 Effacement (%): 100 Station: 2 Exam by: A. Mariano COMMUNICATION Communication: Provider at Bedside Datetime: 10/31/2020 15:49 Patient Position/Activity: Semi-Fowlers Hygiene: More Care; Underpad Changed; Peripad Changed; Linens Changed Datetime: 10/31/2020 15:30 Pitocin Checklist: At Least 1 Acceleration of 15 bpm x 15 Seconds in 30 Minutes or Adequate Variabi lity; No More than 1 Late Deceleration Occurred in Past 30 Minutes; No More than 2 Variable Decelerat ions > 60 Seconds in Duration and decreasing >60 bpm in 30 minutes; No More than 5 Uterine Contractio ns in 10 Minutes for any 20 Minute Interval; Uterus Palpates Soft between Contractions MEDICATIONS Pitocin (milliunits): Increased to @ 8 Datetime: 10/31/2020 13:55 Vaginal Bleeding: Normal Show Cervix, Consistency: Soft Cervix, Position: Anterior Datetime: 10/31/2020 13:18 Anesthesia Comments: bolus Datetime: 10/31/2020 13:13 ANESTHESIA Epidural Procedure: Test Dose Datetime: 10/31/2020 12:40 Analgesics/Sedatives: Fentanyl (mcg) @ 50mcg Datetime: 10/31/2020 12:30 Pain Coping: Requesting Pain Medication or Epidural PATIENT CARE IV/Blood Work: IV Bolus Started Datetime: 10/31/2020 11:41 Monitor Interventions for UA: [place] Adjusted Datetime: 10/31/2020 11:15 Pain Presence: Intermittent Pain Type: Cramping Pain Location: Abdomen; Perineum Pain Relief Measures: Pain Medication Given Pain Assessment Comments: nitros Comfort Measures: Breathing/Relaxation Datetime: 10/31/2020 11:14 Monitor Interventions for FHR: Ultrasound Adjusted Datetime: 10/31/2020 10:22 Contraction Comments: pt. states that she has not felt any contractions since getting in tub Datetime: 10/31/2020 09:57 Membrane Comments: cont. LOF-clear I/O Interventions: Up to BR Datetime: 10/31/2020 09:42 Pain Goal: 6 Datetime: 10/31/2020 08:39 Vaginal Exam Comments: fore bag noted and ruptured Datetime: 10/31/2020 07:58 Amniotic Fluid Color: Clear Amniotic Fluid Amount: Scant Amniotic Fluid Odor: None MATERNAL ASSESSMENT Level of Consciousness: Alert DTR's/Clonus: DTRs 1+; No Clonus Headache: Denies Breath Sounds, Left: Clear and Equal Breath Sounds, Right: Clear and Equal Nausea/Vomiting: Denies RUQ Epigastric Pain: Denies Oxygen Method: Room Air Datetime: 10/31/2020 07:17 TEACHING Instructional Method: Verbal Plan of Care: Plan of Care Discussed; Vaginal Delivery; Labor Unit Routine: Security; Unit Personnel; Handwashing; Monitoring; Diet/Nutrition Servic es Labor/Induction: Labor Stages; Augmentation; Interventions; Activity; Pushing Methods Pain Management: IV Narcotics; Epidural; Pain Scale/Goals; Comfort Measures Related: Common Discomforts of ; Maternal Physical Changes; Maternal Emotional C hanges; Nutrition; Hydration; Activity and Rest Datetime: 10/31/2020 05:30 ASSESSMENT B Monitor Mode: Telemetry FHR Baseline Rate : 135 Variability: Moderate 6-25 bpm Accelerations: 15X15 Decelerations: None Category: Category I Datetime: 10/31/2020 01:58 Membrane Status: Ruptured Membranes Rupture Method: Spontaneous
--- NOTE | 2020-11-02 12:40 | DISCHARGE SUMMARY ---
Physician: PERRI Tavarez DATE OF ADMISSION: 10/30/2020 DATE OF DISCHARGE: 11/02/2020 DIAGNOSES ON ADMISSION 1. A 25-year-old, G1, P0 at 41.1 weeks' gestation. 2. Postdates . 3. Spontaneous rupture of membranes. 4. Early labor. 5. Group B Streptococcus negative. DIAGNOSES ON DISCHARGE 1. A 25-year-old, G1, P1-0-0-1, status post spontaneous vaginal delivery on 10/31/2020. 2. Second-degree perineal laceration intact. 3. . 4. Normal recovery. BRIEF HISTORY/HOSPITAL COURSE: She is a patient of [facility] who presented on 10/30/2020 with grossly ruptured membranes. Cervix was 2 cm dilated, 90% effaced, -1 station in vertex position. Pitocin was initiated for labor augmentation and titrated per protocol. Normal labor course. She progressed to spontaneously deliver a viable female infant on 10/31/2020 at 1642. Apgars were 9 and 9 at one and five minutes, respectively. The patient had a second-degree laceration, which was repaired using both 2-0 and 3-[address]-1 needles in standard fashion under sterile conditions. She has been doing well in her course. She is ambulating and tolerating a regular diet. She is urinating without difficulty and her lochia is normal. Her pain is well controlled with oral medications. She will be discharged home today on day #2 with instructions to continue her vitamin while and to continue taking ibuprofen and Tylenol over the counter as needed for pain management. She intends to follow up with myself at [facility] in one week for routine visit, or sooner if needed. She has been given precautions to call if she has any worsening fevers, chills, abdominal pain, increased bleeding or foul- smelling vaginal lochia. TD: 11/02/2020 11:07 LADARIUS
== END 2020-11-02 11:15 | disposition home or self-care (01) | DRG 807 ==
LOC: WFO 00:56 → FBP 00:57 → WFO 01:46 → FBP 01:47
PROVIDERS: ADMIT Nurse Practitioner Obstetrics & Gynecology; ATTEND Nurse Practitioner Obstetrics & Gynecology
PROC: 10E0XZZ Delivery of Products of Conception, External Approach (ICD-10-PCS; principal; 2020-10-31)
PROC: 0KQM0ZZ Repair Perineum Muscle, Open Approach (ICD-10-PCS; 2020-10-31)
DX: O48.0 Post-term pregnancy (principal); Z37.0 Single live birth; O70.1 Second degree perineal laceration during delivery; O75.89 Other specified complications of labor and delivery; M06.00 Rheumatoid arthritis without rheumatoid factor, unspecified site; Z3A.41 41 weeks gestation of pregnancy
CPT/HCPCS: 84112; 85025; 86850; 86900; 86901; 99213; A9270; J2795; J7120